=== PATIENT | female | born 1995 | race African-American/Black ===

== ENCOUNTER 2021-07-17 04:28 | Emergency (ER) | payer OTHER, MEDICAID ==
[~2021-07-17] VITALS: Ht 172.7 cm; Wt 68.0 kg
[2021-07-17] MEDS ORDERED: MORPHINE SULFATE 4 MG/ML CPJ (NOT FOR IM USE) IV STA (04:31)
[2021-07-17] MEDS ORDERED: ONDANSETRON HCL 4MG/2ML INJ IV STA (04:31)
[2021-07-17] MEDS ORDERED: CEFAZOLIN 1000MG PREMIX 50 ML IV ONE (04:45)
[2021-07-17] MEDS ORDERED: BACITRACIN ZINC OINT UDPKT TOP ONE (04:45)
[2021-07-17] MEDS ORDERED: SODIUM CHLORIDE 0.9% 1,000 ML IV ONE (04:45)
[2021-07-17] MEDS ORDERED: TETANUS, DIPHTHERIA, PERTUSSIS VAC/PF 0.5ML (>10YR OLD) IM ONE (04:45)
[2021-07-17 04:53] LABS: BASOPHILS % 0.7 % (0.0-2.0); EOSINOPHILS % 3.2 % (0.0-5.0); HEMATOCRIT. 35.7 % (36.0-48.0); HEMOGLOBIN. 11.6 g/dL (12.0-16.0); LYMPHOCYTES % 59.1 % (20.0-50.0); MEAN CORPUSCULAR HEMOGLOBIN 27.9 pg (28.0-32.0); MEAN CORPUSCULAR VOLUME 86.1 fL (81.0-99.0); MEAN PLATELET VOLUME 8.2 fl (7.4-10.4); MONOCYTES % 11.1 % (2.0-8.0); NEUTROPHILS % 25.9 % (40.0-76.0); PLATELET 277 x1000/uL (130-400); RED BLOOD CELL COUNT 4.14 mill/uL (4.2-5.4); RED CELL DISTRIBUTION WIDTH 15.6 % (11.6-14.6)
[2021-07-17 05:02] LABS: CHLORIDE 108 mEq/L (98-107)
[2021-07-17] MEDS ORDERED: CEFAZOLIN 1000MG PREMIX 50 ML IV SCH (05:15)
[2021-07-17] MEDS ORDERED: T3 PO (06:12)
[2021-07-17] MEDS ORDERED: IBUP-2028 PO (06:12)
[2021-07-17] MEDS ORDERED: CLIN300C12 PO (06:15)
[2021-07-17 06:24] VITALS: BP 98/60
== END 2021-07-17 06:41 | disposition home or self-care (01) ==
LOC: ER 04:28
DX: M79.602 Pain in left arm (principal); J45.909 Unspecified asthma, uncomplicated; Z88.0 Allergy status to penicillin
CPT/HCPCS: 36415; 71045; 73060; 80048; 85025; 90471; 90715; 96365; 96375; 99291; J0690; J2270; J2405; J7030